=== PATIENT | male | born 1970 | race African-American/Black ===

== ENCOUNTER 2022-12-23 11:53 | Inpatient (IN) | payer OTHER ==
[2022-12-23] MEDS ORDERED: ACETAMINOPHEN 1000 MG/100 ML BAG IVPB ONE (13:56)
[2022-12-23] MEDS ORDERED: ACETAMINOPHEN INJECTION 100 ML IVPB ONE (14:26)
[2022-12-23 14:43] LABS: BASO % 0.7 % (0-2.0); EOS % 3.6 % (0-4.5); HEMATOCRIT 47.9 % (35.4-49); HEMOGLOBIN 15.5 GM/dL (11.7-16.9); LYMPH % 22.7 % (8-40); MCHC 32.3 g/dl (32.0-35.9); MEAN CELL VOLUME 99.1 fl (80-96); MEAN PLT VOLUME 6.4 fl (7.5-11.1); MONO % 6.8 % (3.8-10.2); NEUT % 66.2 % (42.8-82.8); PLATELET COUNT 317 10^3/uL (134-434); RBC 4.84 M/mm3 (4.00-5.60); RDW 15.1 % (11.9-15.9); WHITE BLOOD COUNT 9.3 K/mm3 (4.0-10.0)
[2022-12-23 14:49] LABS: INR 1.2 (0.83-1.09); PROTHROMBIN TIME (PATIENT) 13.9 SEC (9.7-13.0)
[2022-12-23 14:52] LABS: ACTIVATED PTT 38.9 SECONDS (25.2-36.5)
[2022-12-23 15:10] LABS: POTASSIUM 3.1 mmol/L (3.5-5.1)
[2022-12-23 15:14] LABS: ALBUMIN 3.2 g/dl (3.4-5.0); CALCIUM 9.2 mg/dL (8.5-10.1)
[2022-12-23 15:18] LABS: BILIRUBIN,TOTAL 0.8 mg/dL (0.2-1); TOT PROT 8.5 g/dl (6.4-8.2)
[2022-12-23] MEDS ORDERED: HEPARIN NA (PORCINE) 5,000 UNITS/ML 1ML VIAL IVPUSH ONE ×2 (15:55→16:15)
[2022-12-23] MEDS ORDERED: HEPARIN NA (PORCINE) 5,000 UNITS/ML 1ML VIAL IVPUSH PRN ×8 (15:58→17:29)
[2022-12-23] MEDS ORDERED: HEPARIN INFUSION - 25,000 UNITS/500 ML INFUS.BAG IVPB SCH ×5 (16:00→17:15)
[2022-12-23 16:04] LABS: MAGNESIUM 1.9 mg/dL (1.8-2.4)
[2022-12-23] MEDS ORDERED: HEPARIN NA (PORCINE) 5,000 UNITS/ML 1ML VIAL ONE (16:24)
[2022-12-23] MEDS ORDERED: HEPARIN INFUSION - 25,000 UNITS/500 ML INFUS.BAG IVPB ONE (16:25)
[2022-12-23] MEDS: HEPARIN INFUSION - 25,000 UNITS/500 ML INFUS.BAG IVPB SCH (17:40)
[2022-12-23] MEDS ORDERED: POTASSIUM CHLORIDE ORAL LIQUID 20 MEQ/15 ML PO ONE (18:34)
[2022-12-23] MEDS ORDERED: ACETAMINOPHEN 500 MG TABLET (FP) PO PRN (18:43)
[2022-12-23] MEDS ORDERED: POTASSIUM CHLORIDE ORAL LIQUID 20 MEQ/15 ML ONE (19:37)
[2022-12-23] MEDS ORDERED: ATORVASTATIN CA 20 MG TABLET (FP) PO SCH (22:00)
[2022-12-23] MEDS: METOPROLOL TARTRATE 50 MG TABLET (FP) PO SCH (22:36)
[2022-12-24 08:37] LABS: INR 1.21 (0.83-1.09)
[2022-12-24 08:57] LABS: BASO % 0.8 % (0-2.0); EOS % 4.8 % (0-4.5); HEMATOCRIT 42.5 % (35.4-49); HEMOGLOBIN 14.6 GM/dL (11.7-16.9); MCH 33.5 pg (25.7-33.7); MCHC 34.4 g/dl (32.0-35.9); MEAN CELL VOLUME 97.5 fl (80-96); MEAN PLT VOLUME 6.4 fl (7.5-11.1); MONO % 6.2 % (3.8-10.2); NEUT % 59.2 % (42.8-82.8); PLATELET COUNT 272 10^3/uL (134-434); RBC 4.36 M/mm3 (4.00-5.60); RDW 15.2 % (11.9-15.9); WHITE BLOOD COUNT 8.1 K/mm3 (4.0-10.0)
[2022-12-24] MEDS: HEPARIN INFUSION - 25,000 UNITS/500 ML INFUS.BAG IVPB SCH (08:59)
[2022-12-24] MEDS ORDERED: FOLIC ACID 1 MG TABLET (FP) PO SCH (10:00)
[2022-12-24] MEDS ORDERED: DOCUSATE SODIUM 100 MG CAPSULE (FP) PO SCH (10:00)
[2022-12-24] MEDS ORDERED: ASPIRIN COATED 81 MG TABLET.EC PO SCH (10:00)
[2022-12-24] MEDS: METOPROLOL TARTRATE 50 MG TABLET (FP) PO SCH ×2 (10:19→21:44)
[2022-12-24 10:49] LABS: CALCIUM 8.4 mg/dL (8.5-10.1); CREATININE 0.9 mg/dL (0.55-1.3); POTASSIUM 3.4 mmol/L (3.5-5.1)
[2022-12-24] MEDS ORDERED: ceFAZolin SODIUM 1 GM VIAL IVPB ONE ×2 (10:53→12:19)
[2022-12-24] MEDS ORDERED: LIDOCAINE HCL 1%, 10 MG/ML (20ML VIAL) NR ONE ×3 (10:54→12:22)
[2022-12-24] MEDS ORDERED: IOVERSOL 320 MG/ML ML IV ONE ×2 (10:54→12:25)
[2022-12-24] MEDS ORDERED: HEPARIN NA (PORCINE) 5,000 UNITS/ML 1ML VIAL SQ ONE ×2 (10:55→12:23)
[2022-12-24] MEDS ORDERED: ALTEPLASE (CATHFLO) 2 MG/2 ML VIAL CVP ONE ×2 (10:56→12:40)
[2022-12-24] MEDS ORDERED: HEPARIN NA (PORCINE) 5,000 UNITS/ML 1ML VIAL ONE ×2 (11:10→11:22)
[2022-12-24] MEDS ORDERED: LIDOCAINE HCL 1%, 10 MG/ML (10ML VIAL) MDV ONE (11:10)
[2022-12-24] MEDS ORDERED: PROPOFOL 20 ML ONE (11:18)
[2022-12-24] MEDS ORDERED: LIDOCAINE HCL/PF 2% SDV 5ML VIAL ONE (11:18)
[2022-12-24] MEDS ORDERED: DEXMEDETOMIDINE HCL 200 MCG/2 ML IVPB ONE (11:22)
[2022-12-24] MEDS ORDERED: MIDAZOLAM HCL 2 MG/2 ML SINGLE DOSE VIAL ONE (11:41)
[2022-12-24] MEDS ORDERED: ONDANSETRON 4 MG/2 ML VIAL IVPUSH PRN ×2 (13:50→14:00)
[2022-12-24] MEDS ORDERED: HEPARIN NA (PORCINE) 5,000 UNITS/ML 1ML VIAL IVPUSH PRN ×4 (14:00)
[2022-12-24] MEDS ORDERED: LACTATED RINGERS SOLUTION 1,000 ML IV SCH (14:00)
[2022-12-24] MEDS ORDERED: HEPARIN INFUSION - 25,000 UNITS/500 ML INFUS.BAG IVPB SCH (14:00)
[2022-12-24] MEDS ORDERED: ACETAMINOPHEN 500 MG TABLET (FP) PO PRN (14:00)
[2022-12-24] MEDS ORDERED: POTASSIUM CHLORIDE TABS 20 MEQ TABLET.ER (FP) PO ONE ×2 (14:54→17:30)
[2022-12-24] MEDS ORDERED: ONDANSETRON 4 MG/2 ML VIAL ONE (15:19)
[2022-12-24] MEDS: LACTATED RINGERS SOLUTION 1,000 ML IV SCH (16:00)
[2022-12-24 17:34] VITALS: RESP 18
[2022-12-24] MEDS: ATORVASTATIN CA 20 MG TABLET (FP) PO SCH (21:45)
[2022-12-25] MEDS: LACTATED RINGERS SOLUTION 1,000 ML IV SCH (02:53)
[2022-12-25 08:29] LABS: HEMATOCRIT 40.8 % (35.4-49); HEMOGLOBIN 13.7 GM/dL (11.7-16.9); MCH 32.6 pg (25.7-33.7); MCHC 33.5 g/dl (32.0-35.9); MEAN CELL VOLUME 97.3 fl (80-96); MEAN PLT VOLUME 6.8 fl (7.5-11.1); PLATELET COUNT 223 10^3/uL (134-434); RDW 15.1 % (11.9-15.9); WHITE BLOOD COUNT 9.3 K/mm3 (4.0-10.0)
[2022-12-25 08:38] LABS: POTASSIUM 3.2 mmol/L (3.5-5.1)
[2022-12-25 08:42] LABS: BLOOD UREA NITROGEN 6.2 mg/dL (7-18)
[2022-12-25 08:45] LABS: CREATININE 0.8 mg/dL (0.55-1.3)
[2022-12-25] MEDS: METOPROLOL TARTRATE 50 MG TABLET (FP) PO SCH ×2 (09:37→22:09)
[2022-12-25] MEDS: FOLIC ACID 1 MG TABLET (FP) PO SCH (09:37)
[2022-12-25] MEDS: ASPIRIN COATED 81 MG TABLET.EC PO SCH (09:37)
[2022-12-25] MEDS ORDERED: ENOXAPARIN NA (PORCINE) 120 MG/0.8 ML DISP.SYRIN SQ SCH (10:00)
[2022-12-25] MEDS ORDERED: DOCUSATE SODIUM 100 MG CAPSULE (FP) PO SCH (10:00)
[2022-12-25] MEDS ORDERED: ENOXAPARIN 80 MG, ENOXAPARIN 60 MG SQ SCH (10:15)
[2022-12-25] MEDS: APIXABAN 5 MG TABLET PO SCH ×2 (10:30→22:08)
[2022-12-25 10:54] LABS: EPI CELLS 6 /uL (0-25.1); HYALINE CASTS 0 /uL (0-3.1); URINE APPEARANCE CLEAR; URINE BACTERIA 2 /uL (0-1359); URINE BILIRUBIN NEGATIVE (NEGATIVE); URINE COLOR YELLOW; URINE GLUCOSE (UA) NEGATIVE (NEGATIVE); URINE KETONE NEGATIVE (NEGATIVE); URINE LEUK ESTERASE NEGATIVE (NEGATIVE); URINE NITRITE NEGATIVE (NEGATIVE); URINE PROTEIN NEGATIVE (NEGATIVE); URINE RBC 18 /uL (0-23.9); URINE WBC 3 /uL (0-25.8)
[2022-12-25] MEDS ORDERED: POTASSIUM CHLORIDE TABS 20 MEQ TABLET.ER (FP) PO ONE (12:30)
[2022-12-25 12:45] LABS: MAGNESIUM 1.5 mg/dL (1.8-2.4)
[2022-12-25] MEDS ORDERED: MAGNESIUM SULF 50% (8.12 MEQ/2 ML-1 GM VIAL) IVPB ONE (14:36)
[2022-12-25] MEDS: ATORVASTATIN CA 20 MG TABLET (FP) PO SCH (22:09)
[2022-12-26] MEDS ORDERED: traMADol HCL 50 MG TABLET PO PRN (08:03)
[2022-12-26 08:59] LABS: HEMATOCRIT 40.9 % (35.4-49); HEMOGLOBIN 13.9 GM/dL (11.7-16.9); MCH 32.7 pg (25.7-33.7); MCHC 33.9 g/dl (32.0-35.9); MEAN CELL VOLUME 96.3 fl (80-96); MEAN PLT VOLUME 6.8 fl (7.5-11.1); PLATELET COUNT 237 10^3/uL (134-434); RBC 4.25 M/mm3 (4.00-5.60); RDW 15.3 % (11.9-15.9); WHITE BLOOD COUNT 9.2 K/mm3 (4.0-10.0)
[2022-12-26] MEDS: ASPIRIN COATED 81 MG TABLET.EC PO SCH (09:04)
[2022-12-26] MEDS: FOLIC ACID 1 MG TABLET (FP) PO SCH (09:04)
[2022-12-26] MEDS: APIXABAN 5 MG TABLET PO SCH (09:04)
[2022-12-26] MEDS: METOPROLOL TARTRATE 50 MG TABLET (FP) PO SCH (09:04)
[2022-12-26 09:09] LABS: POTASSIUM 3.3 mmol/L (3.5-5.1)
[2022-12-26 09:14] LABS: BLOOD UREA NITROGEN 4.6 mg/dL (7-18); MAGNESIUM 1.6 mg/dL (1.8-2.4)
[2022-12-26 09:17] LABS: CREATININE 0.8 mg/dL (0.55-1.3); PHOSPHOROUS 2.9 mg/dL (2.5-4.9)
[2022-12-26] MEDS ORDERED: MAGNESIUM OXIDE 400 MG TABLET (FP) PO ONE (10:20)
[2022-12-26] MEDS ORDERED: POTASSIUM CHLORIDE TABS 20 MEQ TABLET.ER (FP) PO ONE (10:21)
[2022-12-26 11:01] VITALS: BMI 50.3
[2022-12-26 11:48] VITALS: BP 145/84; PULSE 73; TEMP 99
== END 2022-12-26 12:05 | disposition home or self-care (01) | DRG 271 ==
LOC: JER 11:53 → JERBED 17:07 → J7W 21:42
PROVIDERS: ADMIT Internal Medicine; ATTEND Internal Medicine
PROC: 067M3DZ Dilation of Right Femoral Vein with Intraluminal Device, Percutaneous Approach (ICD-10-PCS; 2022-12-24)
PROC: 067C3DZ Dilation of Right Common Iliac Vein with Intraluminal Device, Percutaneous Approach (ICD-10-PCS; 2022-12-24)
PROC: B50BYZZ Plain Radiography of Right Lower Extremity Veins using Other Contrast (ICD-10-PCS; 2022-12-24)
PROC: 3E04317 Introduction of Other Thrombolytic into Central Vein, Percutaneous Approach (ICD-10-PCS; 2022-12-24)
PROC: 06CY3ZZ Extirpation of Matter from Lower Vein, Percutaneous Approach (ICD-10-PCS; principal; 2022-12-24 12:00)
DX: I82.411 Acute embolism and thrombosis of right femoral vein (principal); T82.868A Thrombosis due to vascular prosthetic devices, implants and grafts, initial encounter; Z68.43 Body mass index [BMI] 50.0-59.9, adult; I82.431 Acute embolism and thrombosis of right popliteal vein; I10 Essential (primary) hypertension; I69.320 Aphasia following cerebral infarction; I89.0 Lymphedema, not elsewhere classified; E87.6 Hypokalemia; R31.9 Hematuria, unspecified; E66.01 Morbid (severe) obesity due to excess calories; Y83.8 Other surgical procedures as the cause of abnormal reaction of the patient, or of later complication, without mention of misadventure at the time of the procedure
CPT/HCPCS: 36415; 76000-TC-FY; 80048; 80053; 81003; 83735; 84100; 85025; 85027; 85610; 85730; 86850; 86900; 86901; 87040; 87086; 93005; 93010; 93971-TC; 94760; 99285-25; C1726; C1769; C1876; J1644; J2997

== ENCOUNTER 2022-12-31 16:39 | Inpatient (IN) | payer OTHER ==
[2022-12-31 16:45] VITALS: BMI 45.6
[2022-12-31] MEDS ORDERED: morphine CARPU-JECT 4 MG/1 ML DISP.SYRIN IVPUSH ONE (18:41)
[2022-12-31] MEDS ORDERED: morphine SULFATE 4 MG/ML VIAL ONE (18:51)
[2022-12-31] MEDS ORDERED: HEPARIN NA (PORCINE) 5,000 UNITS/ML 1ML VIAL IVPUSH PRN ×2 (19:39)
[2022-12-31] MEDS ORDERED: HEPARIN NA (PORCINE) 5,000 UNITS/ML 1ML VIAL IVPUSH ONE (19:39)
[2022-12-31 19:46] LABS: INR 1.58 (0.83-1.09); PROTHROMBIN TIME (PATIENT) 18.2 SEC (9.7-13.0)
[2022-12-31 19:50] LABS: ACTIVATED PTT 28.8 SECONDS (25.2-36.5)
[2022-12-31 19:56] LABS: CALCIUM 8.5 mg/dL (8.5-10.1); POTASSIUM 4.7 mmol/L (3.5-5.1)
[2022-12-31 19:57] LABS: ALBUMIN 2.9 g/dl (3.4-5.0); BLOOD UREA NITROGEN 6.2 mg/dL (7-18)
[2022-12-31 20:01] LABS: BILIRUBIN,TOTAL 0.9 mg/dL (0.2-1)
[2022-12-31 20:02] LABS: TOT PROT 7.6 g/dl (6.4-8.2)
[2022-12-31] MEDS ORDERED: HEPARIN NA (PORCINE) 5,000 UNITS/ML 1ML VIAL ONE (20:17)
[2022-12-31] MEDS ORDERED: HEPARIN INFUSION - 25,000 UNITS/500 ML INFUS.BAG IVPB ONE (20:17)
[2022-12-31] MEDS: HEPARIN INFUSION - 25,000 UNITS/500 ML INFUS.BAG IVPB SCH (20:33)
[2022-12-31 20:42] LABS: BASO % 0.9 % (0-2.0); EOS % 4.7 % (0-4.5); HEMATOCRIT 38.6 % (35.4-49); HEMOGLOBIN 13.4 GM/dL (11.7-16.9); LYMPH % 32.7 % (8-40); MCH 33.4 pg (25.7-33.7); MCHC 34.8 g/dl (32.0-35.9); MEAN CELL VOLUME 95.9 fl (80-96); MEAN PLT VOLUME 6.3 fl (7.5-11.1); MONO % 6.7 % (3.8-10.2); PLATELET COUNT 389 10^3/uL (134-434); RBC 4.02 M/mm3 (4.00-5.60); RDW 15.8 % (11.9-15.9); WHITE BLOOD COUNT 9.2 K/mm3 (4.0-10.0)
[2023-01-01] MEDS ORDERED: ACETAMINOPHEN 500 MG TABLET (FP) PO PRN ×2 (01:59→19:47)
[2023-01-01] MEDS ORDERED: morphine SULFATE 4 MG/ML VIAL IVPUSH PRN (03:47)
[2023-01-01] MEDS: METOPROLOL TARTRATE 50 MG TABLET (FP) PO SCH ×3 (05:06→21:55)
[2023-01-01] MEDS ORDERED: morphine SULFATE 4 MG/ML VIAL ONE ×2 (05:17→11:04)
[2023-01-01] MEDS ORDERED: METOPROLOL TARTRATE 50 MG TABLET (FP) ONE (05:17)
[2023-01-01] MEDS ORDERED: HEPARIN INFUSION - 25,000 UNITS/500 ML INFUS.BAG IVPB ONE (07:23)
[2023-01-01 09:47] LABS: BASO % 1.2 % (0-2.0); EOS % 3.9 % (0-4.5); HEMATOCRIT 48.9 % (35.4-49); HEMOGLOBIN 16.7 GM/dL (11.7-16.9); LYMPH % 26.9 % (8-40); MCH 33.2 pg (25.7-33.7); MCHC 34.1 g/dl (32.0-35.9); MEAN CELL VOLUME 97.5 fl (80-96); MEAN PLT VOLUME 6.8 fl (7.5-11.1); MONO % 5.5 % (3.8-10.2); NEUT % 62.5 % (42.8-82.8); PLATELET COUNT 450 10^3/uL (134-434); RBC 5.01 M/mm3 (4.00-5.60); RDW 15.3 % (11.9-15.9); WHITE BLOOD COUNT 10.1 K/mm3 (4.0-10.0)
[2023-01-01] MEDS ORDERED: DOCUSATE SODIUM 100 MG CAPSULE (FP) PO SCH (10:00)
[2023-01-01] MEDS ORDERED: FOLIC ACID 1 MG TABLET (FP) PO SCH (10:00)
[2023-01-01 12:07] LABS: BLOOD UREA NITROGEN 6.4 mg/dL (7-18); CALCIUM 8.9 mg/dL (8.5-10.1); CREATININE 1.1 mg/dL (0.55-1.3); POTASSIUM 3.5 mmol/L (3.5-5.1)
[2023-01-01] MEDS: HEPARIN INFUSION - 25,000 UNITS/500 ML INFUS.BAG IVPB SCH ×2 (15:24→21:39)
[2023-01-01] MEDS ORDERED: HEPARIN NA (PORCINE) 5,000 UNITS/ML 1ML VIAL IVPUSH PRN ×2 (19:47)
[2023-01-01] MEDS: ATORVASTATIN CA 20 MG TABLET (FP) PO SCH (21:55)
[2023-01-01] MEDS ORDERED: ATORVASTATIN CA 20 MG TABLET (FP) PO SCH (22:00)
[2023-01-02] MEDS: DEXTROSE 5%-NORMAL SALINE 1,000 ML IV SCH ×4 (02:08→20:01)
[2023-01-02] MEDS: VITAMINS A AND D TOPICAL OINTMENT 60 GM TUBE TP SCH ×5 (02:08→17:50)
[2023-01-02 02:39] LABS: EPI CELLS 5 /uL (0-25.1); HYALINE CASTS 0 /uL (0-3.1); PH,URINE 7.5 (5.0-8.0); URINE APPEARANCE CLEAR; URINE BACTERIA 212 /uL (0-1359); URINE BILIRUBIN NEGATIVE (NEGATIVE); URINE COLOR YELLOW; URINE GLUCOSE (UA) NEGATIVE (NEGATIVE); URINE KETONE NEGATIVE (NEGATIVE); URINE LEUK ESTERASE NEGATIVE (NEGATIVE); URINE NITRITE NEGATIVE (NEGATIVE); URINE PROTEIN NEGATIVE (NEGATIVE); URINE RBC 24 /uL (0-23.9); URINE WBC 1 /uL (0-25.8)
[2023-01-02 06:45] LABS: POTASSIUM 3.5 mmol/L (3.5-5.1)
[2023-01-02 06:47] LABS: BLOOD UREA NITROGEN 6.8 mg/dL (7-18)
[2023-01-02 06:51] LABS: CREATININE 0.9 mg/dL (0.55-1.3)
[2023-01-02] MEDS: METOPROLOL TARTRATE 50 MG TABLET (FP) PO SCH ×2 (10:12→22:36)
[2023-01-02] MEDS: FOLIC ACID 1 MG TABLET (FP) PO SCH (10:12)
[2023-01-02] MEDS: DOCUSATE SODIUM 100 MG CAPSULE (FP) PO SCH (10:12)
[2023-01-02] MEDS: HEPARIN INFUSION - 25,000 UNITS/500 ML INFUS.BAG IVPB SCH ×3 (10:13→20:01)
[2023-01-02] MEDS: morphine SULFATE 4 MG/ML VIAL IVPUSH PRN ×2 (11:35→22:40)
[2023-01-02] MEDS: ATORVASTATIN CA 20 MG TABLET (FP) PO SCH (22:36)
[2023-01-02] MEDS: diphenhydrAMINE HCL 25 MG CAPSULE (FP) PO SCH (22:36)
[2023-01-03] MEDS: VITAMINS A AND D TOPICAL OINTMENT 60 GM TUBE TP SCH ×4 (00:52→17:53)
[2023-01-03] MEDS: morphine SULFATE 4 MG/ML VIAL IVPUSH PRN ×2 (04:47→22:10)
[2023-01-03] MEDS: DOCUSATE SODIUM 100 MG CAPSULE (FP) PO SCH (09:14)
[2023-01-03] MEDS: METOPROLOL TARTRATE 50 MG TABLET (FP) PO SCH ×2 (09:14→22:09)
[2023-01-03] MEDS: FOLIC ACID 1 MG TABLET (FP) PO SCH (09:14)
[2023-01-03] MEDS: HEPARIN INFUSION - 25,000 UNITS/500 ML INFUS.BAG IVPB SCH ×2 (18:30→22:17)
[2023-01-03] MEDS: DEXTROSE 5%-NORMAL SALINE 1,000 ML IV SCH ×2 (18:35→22:17)
[2023-01-03] MEDS: ATORVASTATIN CA 20 MG TABLET (FP) PO SCH (22:09)
[2023-01-03] MEDS: diphenhydrAMINE HCL 25 MG CAPSULE (FP) PO SCH (22:09)
[2023-01-04] MEDS: VITAMINS A AND D TOPICAL OINTMENT 60 GM TUBE TP SCH ×4 (02:42→18:28)
[2023-01-04] MEDS: DOCUSATE SODIUM 100 MG CAPSULE (FP) PO SCH (09:51)
[2023-01-04] MEDS: METOPROLOL TARTRATE 50 MG TABLET (FP) PO SCH ×2 (09:51→21:10)
[2023-01-04] MEDS: FOLIC ACID 1 MG TABLET (FP) PO SCH (09:51)
[2023-01-04 11:13] LABS: BASO % 0.8 % (0-2.0); EOS % 4.6 % (0-4.5); HEMATOCRIT 46.1 % (35.4-49); HEMOGLOBIN 15.9 GM/dL (11.7-16.9); LYMPH % 25.1 % (8-40); MCH 33.2 pg (25.7-33.7); MCHC 34.5 g/dl (32.0-35.9); MEAN CELL VOLUME 96.3 fl (80-96); MONO % 5.3 % (3.8-10.2); NEUT % 64.2 % (42.8-82.8); PLATELET COUNT 408 10^3/uL (134-434); RBC 4.79 M/mm3 (4.00-5.60); RDW 15.1 % (11.9-15.9); WHITE BLOOD COUNT 9.6 K/mm3 (4.0-10.0)
[2023-01-04] MEDS ORDERED: HEPARIN NA (PORCINE) 5,000 UNITS/ML 1ML VIAL ONE ×2 (11:59→15:18)
[2023-01-04] MEDS ORDERED: LIDOCAINE HCL 1%, 10 MG/ML (20ML VIAL) ONE (12:00)
[2023-01-04] MEDS: HEPARIN INFUSION - 25,000 UNITS/500 ML INFUS.BAG IVPB SCH (12:37)
[2023-01-04] MEDS ORDERED: ONDANSETRON 4 MG/2 ML VIAL IVPUSH PRN ×3 (12:47→16:05)
[2023-01-04] MEDS ORDERED: oxyCODONE HCL 5 MG TABLET PO PRN ×2 (12:47→16:05)
[2023-01-04] MEDS ORDERED: ceFAZolin SODIUM 1 GM VIAL IVPB ONE (14:15)
[2023-01-04] MEDS ORDERED: MIDAZOLAM HCL 2 MG/2 ML SINGLE DOSE VIAL ONE ×2 (14:19→14:54)
[2023-01-04] MEDS ORDERED: PROPOFOL 20 ML ONE (14:19)
[2023-01-04] MEDS ORDERED: NALOXONE HCL 0.4 MG/ML VIAL ONE (14:32)
[2023-01-04] MEDS ORDERED: LIDOCAINE 1% P/F 10 MG/ML VIAL INF ONE (14:52)
[2023-01-04] MEDS ORDERED: LACTATED RINGERS SOLUTION 1,000 ML IV SCH (16:00)
[2023-01-04] MEDS ORDERED: ACETAMINOPHEN 500 MG TABLET (FP) PO PRN (16:05)
[2023-01-04] MEDS: DEXTROSE 5%-NORMAL SALINE 1,000 ML IV SCH (18:28)
[2023-01-04] MEDS: ATORVASTATIN CA 20 MG TABLET (FP) PO SCH (21:10)
[2023-01-04] MEDS: APIXABAN 5 MG TABLET PO SCH (21:10)
[2023-01-04] MEDS: diphenhydrAMINE HCL 25 MG CAPSULE (FP) PO SCH (21:10)
[2023-01-04] MEDS: morphine SULFATE 4 MG/ML VIAL IVPUSH PRN (21:17)
[2023-01-05] MEDS: VITAMINS A AND D TOPICAL OINTMENT 60 GM TUBE TP SCH ×4 (00:59→18:00)
[2023-01-05] MEDS: DEXTROSE 5%-NORMAL SALINE 1,000 ML IV SCH ×2 (08:00→16:59)
[2023-01-05] MEDS: morphine SULFATE 4 MG/ML VIAL IVPUSH PRN ×2 (08:44→19:45)
[2023-01-05] MEDS: DOCUSATE SODIUM 100 MG CAPSULE (FP) PO SCH (09:48)
[2023-01-05] MEDS: FOLIC ACID 1 MG TABLET (FP) PO SCH (09:49)
[2023-01-05] MEDS: APIXABAN 5 MG TABLET PO SCH ×2 (09:49→21:45)
[2023-01-05] MEDS: METOPROLOL TARTRATE 50 MG TABLET (FP) PO SCH ×2 (09:50→21:45)
[2023-01-05 14:32] LABS: BILIRUBIN,TOTAL 0.9 mg/dL (0.2-1); BLOOD UREA NITROGEN 5.3 mg/dL (7-18); CALCIUM 8.9 mg/dL (8.5-10.1); CREATININE 0.9 mg/dL (0.55-1.3); POTASSIUM 4.2 mmol/L (3.5-5.1); TOT PROT 7.7 g/dl (6.4-8.2)
[2023-01-05 15:39] LABS: EPI CELLS 5 /uL (0-25.1); HYALINE CASTS 3 /uL (0-3.1); URINE APPEARANCE CLEAR; URINE BACTERIA 173 /uL (0-1359); URINE BILIRUBIN NEGATIVE (NEGATIVE); URINE COLOR YELLOW; URINE GLUCOSE (UA) NEGATIVE (NEGATIVE); URINE KETONE NEGATIVE (NEGATIVE); URINE LEUK ESTERASE 2+ (NEGATIVE); URINE NITRITE NEGATIVE (NEGATIVE); URINE PROTEIN NEGATIVE (NEGATIVE); URINE RBC 13 /uL (0-23.9); URINE WBC 350 /uL (0-25.8)
[2023-01-05] MEDS: ATORVASTATIN CA 20 MG TABLET (FP) PO SCH (21:45)
[2023-01-05] MEDS: diphenhydrAMINE HCL 25 MG CAPSULE (FP) PO SCH (21:45)
[2023-01-06] MEDS: VITAMINS A AND D TOPICAL OINTMENT 60 GM TUBE TP SCH ×5 (00:12→23:31)
[2023-01-06] MEDS: morphine SULFATE 4 MG/ML VIAL IVPUSH PRN ×2 (02:31→11:10)
[2023-01-06] MEDS: DEXTROSE 5%-NORMAL SALINE 1,000 ML IV SCH ×2 (06:25→22:20)
[2023-01-06] MEDS ORDERED: ENOXAPARIN NA (PORCINE) 120 MG/0.8 ML DISP.SYRIN SQ SCH (10:00)
[2023-01-06] MEDS: FOLIC ACID 1 MG TABLET (FP) PO SCH (11:06)
[2023-01-06] MEDS: METOPROLOL TARTRATE 50 MG TABLET (FP) PO SCH ×2 (11:06→21:04)
[2023-01-06] MEDS: DOCUSATE SODIUM 100 MG CAPSULE (FP) PO SCH (11:06)
[2023-01-06] MEDS: ENOXAPARIN 100 MG, ENOXAPARIN 30 MG SQ SCH ×2 (12:18→21:05)
[2023-01-06] MEDS: diphenhydrAMINE HCL 25 MG CAPSULE (FP) PO SCH (21:04)
[2023-01-06] MEDS: ATORVASTATIN CA 20 MG TABLET (FP) PO SCH (21:04)
[2023-01-07] MEDS: morphine SULFATE 4 MG/ML VIAL IVPUSH PRN ×2 (03:12→21:49)
[2023-01-07] MEDS: VITAMINS A AND D TOPICAL OINTMENT 60 GM TUBE TP SCH ×3 (06:01→17:19)
[2023-01-07] MEDS: METOPROLOL TARTRATE 50 MG TABLET (FP) PO SCH ×2 (09:32→21:49)
[2023-01-07] MEDS: DOCUSATE SODIUM 100 MG CAPSULE (FP) PO SCH (09:32)
[2023-01-07] MEDS: FOLIC ACID 1 MG TABLET (FP) PO SCH (09:32)
[2023-01-07] MEDS: ENOXAPARIN 100 MG, ENOXAPARIN 30 MG SQ SCH ×2 (12:14→21:50)
[2023-01-07] MEDS: ATORVASTATIN CA 20 MG TABLET (FP) PO SCH (21:49)
[2023-01-07] MEDS: diphenhydrAMINE HCL 25 MG CAPSULE (FP) PO SCH (21:49)
[2023-01-08] MEDS: VITAMINS A AND D TOPICAL OINTMENT 60 GM TUBE TP SCH ×4 (00:37→18:21)
[2023-01-08] MEDS: METOPROLOL TARTRATE 50 MG TABLET (FP) PO SCH ×2 (10:14→21:47)
[2023-01-08] MEDS: DOCUSATE SODIUM 100 MG CAPSULE (FP) PO SCH (10:14)
[2023-01-08] MEDS: FOLIC ACID 1 MG TABLET (FP) PO SCH (10:14)
[2023-01-08] MEDS: ENOXAPARIN 100 MG, ENOXAPARIN 30 MG SQ SCH ×2 (10:14→21:47)
[2023-01-08] MEDS: diphenhydrAMINE HCL 25 MG CAPSULE (FP) PO SCH (21:47)
[2023-01-08] MEDS: ATORVASTATIN CA 20 MG TABLET (FP) PO SCH (21:47)
[2023-01-09] MEDS: VITAMINS A AND D TOPICAL OINTMENT 60 GM TUBE TP SCH ×3 (00:41→11:44)
[2023-01-09 05:24] VITALS: RESP 18
[2023-01-09] MEDS: ENOXAPARIN 100 MG, ENOXAPARIN 30 MG SQ SCH (09:36)
[2023-01-09] MEDS: FOLIC ACID 1 MG TABLET (FP) PO SCH (09:36)
[2023-01-09] MEDS: METOPROLOL TARTRATE 50 MG TABLET (FP) PO SCH (09:36)
[2023-01-09] MEDS: DOCUSATE SODIUM 100 MG CAPSULE (FP) PO SCH (09:36)
[2023-01-09 12:09] VITALS: BP 159/86; PULSE 79; TEMP 98.2
== END 2023-01-09 12:45 | disposition home or self-care (01) | DRG 271 ==
LOC: JER 16:39 → JERBED 01-01 00:02 → J6S 01-01 14:15
PROVIDERS: ADMIT Internal Medicine; ATTEND Family Medicine
PROC: 06CM3ZZ Extirpation of Matter from Right Femoral Vein, Percutaneous Approach (ICD-10-PCS; principal; 2023-01-04 13:45)
PROC: 067C3ZZ Dilation of Right Common Iliac Vein, Percutaneous Approach (ICD-10-PCS; 2023-01-04 13:45)
DX: I82.439 Acute embolism and thrombosis of unspecified popliteal vein (principal); Z68.42 Body mass index [BMI] 45.0-49.9, adult; M79.661 Pain in right lower leg; E66.01 Morbid (severe) obesity due to excess calories; I10 Essential (primary) hypertension; J44.9 Chronic obstructive pulmonary disease, unspecified; R60.9 Edema, unspecified; I89.0 Lymphedema, not elsewhere classified; R31.29 Other microscopic hematuria; F17.210 Nicotine dependence, cigarettes, uncomplicated; I44.0 Atrioventricular block, first degree; G47.33 Obstructive sleep apnea (adult) (pediatric)
CPT/HCPCS: 36415; 71045-TC-FY; 71260-TC; 74177-TC; 76000-TC-FY; 76775-TC; 76856-TC; 80048; 80053; 81003; 81240; 81241; 82962; 85025; 85610; 85730; 86850; 86900; 86901; 93005; 93010; 93971-TC; 94660; 94760; 97116-GP; 99285-25; C1726; C1757; C1894; J1644; Q9967